=== PATIENT | female | born 1980 | race Caucasian/White ===

== ENCOUNTER 2024-04-11 21:16 | Emergency (ER) | payer SELFPAY ==
--- NOTE | 2024-04-11 21:19 | EKG_ITS ---
[facility] Test Date: 2024-04-11 Pat Name: ROBBY THORNE Department: Room: - Gender: Female Acute Coordinator: : 1980 Requested By: Jose Alberto Rae Order Number: [id number] Reading MD: Jose Alberto Rae Measurements Intervals [place] Rate: 90 P: 56 MA: 156 QRS: 30 QRSD: 89 T: 46 QT: 339 QTc: 415 Interpretive Statements SINUS RHYTHM No previous ECG available for comparison /store/S0/[id number]
[2024-04-11 21:40] VITALS: BP 149/84; PULSE 90; RESP 18; TEMP 37; O2SAT 96
[2024-04-11 21:41] VITALS: BMI 27.9
--- NOTE | 2024-04-11 21:51 | PD.EDRME ---
Rapid Medical Screening Exam E Arrival date/time: 04/11/24 21:16 44F with no significant PMH presents to ED with 1 week of cough and CP/SOB. Chief Complaint: Chest Pain Vital signs: Vital Signs Temperature 98.6 F 04/11/24 21:40 Pulse Rate 90 04/11/24 21:40 Respiratory Rate 18 04/11/24 21:40 Blood Pressure 149/84 H 04/11/24 21:40 Pulse Oximetry (%) 96 04/11/24 21:40 Oxygen Delivery Method Room Air 04/11/24 21:40
--- NOTE | 2024-04-11 22:15 | PC.NURSE ---
called for pt from lobby/outside, no answer @5022
--- NOTE | 2024-04-11 22:25 | PC.NURSE ---
PT ELOPED THER ER NAx1 2200, 2213, 2222
== END 2024-04-11 22:26 | disposition left against medical advice (07) ==
LOC: SERX 22:43
PROVIDERS: Emergency Provider Emergency Medicine
DX: R05.9 Cough, unspecified (principal); R07.9 Chest pain, unspecified; R06.02 Shortness of breath; Z53.29 Procedure and treatment not carried out because of patient's decision for other reasons
CPT/HCPCS: 80053; 84484; 85025; 93005; 99283

== ENCOUNTER 2024-08-06 13:16 | Emergency (ER) | payer SELFPAY ==
[2024-08-06 13:18] VITALS: BMI 27.3
[2024-08-06 14:03] VITALS: BP 129/82; PULSE 88; RESP 18; TEMP 36.9; O2SAT 99
--- NOTE | 2024-08-06 14:09 | XR_ITS ---
Examination: PA lateral chest 2 views TECHNIQUE: Upright PA lateral chest 2 views Exam date and time: August 06, 2024 1434 hours Comparison February 19, 2024 INDICATIONS: Coughing beginning 2 days ago. FINDINGS: Normal heart size. Lungs are clear. The osseous structures are intact IMPRESSION: No active disease
--- NOTE | 2024-08-06 15:17 | EDNOTE_ITS ---
Upper Respiratory Inf. RME/HPI General Chief Complaint: Flu Like Symptoms Stated Complaint: Chest pain, congestion, cough, fever Time Seen by Provider: 08/06/24 14:09 Arrival date/time: 08/06/24 13:16 44-year-old female with no significant medical problems presents to the emergency room today for complaints of cough, congestion, fever and bodyaches as well as sinus congestion and pain Limitations: no limitations Related Data Previous Rx's ?Medication ?Instructions ?Recorded amoxicillin 875 mg-potassium 1 tab PO BID 7 days #14 t abs 08/06/24 clavulanate 125 mg tablet ibuprofen 600 mg tablet 600 mg PO Q6H #30 tabs 08/06 Allergies Allergy/AdvReac Type Severity Reaction Status Date / Time walnut Allergy Severe Swelling Verified 02/23/24 12:07 of Lip/Tongue/Throat Review of Systems Review of Systems Systems Reviewed: All systems reviewed, normal except as documented Constitutional Constitutional: Reports system reviewed and no additional complaints, except as documented, Denies fever(s) and Denies headache(s) Eyes Eyes: Reports system reviewed and no additional complaints, except as documented and Denies blurry vision ENT Ears, Nose, Mouth, and Throat: Reports system reviewed and no additional complaints, except as documented, Denies headache(s), Reports nasal congestion and Reports nasal discharge Cardiovascular Cardiovascular: Reports system reviewed and no additional complaints, except as documented, Denies chest pain and Denies dyspnea Respiratory Respiratory: Reports system reviewed and no additional complaints, except as documented, Reports chest congestion, Reports cough and Denies dyspnea Gastrointestinal Gastrointestinal: Reports system reviewed and no additional complaints, except as documented and Denies abdominal pain Integumentary/Breasts Skin/Breast: Reports system reviewed and no additional complaints, except as documented and Denies rash Neurologic Neurologic: Reports system reviewed and no additional complaints, except as documented, Reports as per HPI and Denies headache(s) Past Medical History Social History SMOKING STATUS: Current some day smoker ED Exam General Limitations: Present no limitations General appearance: Present alert and in no apparent distress Head Head exam: Present atraumatic Eye Eye exam: Present normal appearance, PERRL and EOMI ENT ENT exam: Present normal exam, normal oropharynx and mucous membranes moist Neck Neck exam: Present normal inspection, full ROM and trachea midline Chest Chest inspection: Present normal inspection and symmetric chest wall rise Respiratory Respiratory exam: Present normal lung sounds bilaterally Cardiovascular Cardiovascular exam: Present regular rate, normal rhythm and normal heart sounds Abdominal Exam Abdominal exam: Present soft and normal bowel sounds Extremities Exam Extremities exam: Present normal inspection and full ROM Back Exam Back exam: Present normal inspection and full ROM Neurological Exam Neurological exam: Present alert, oriented X3 and CN II-XII intact Psychiatric Psychiatric exam: Present normal affect and normal mood Skin Skin exam: Present warm, dry, intact and normal color Course Quality Measures none Orders Category Date Time Status Bedside Influenza A&B Antigen Test NOW Care 08/06/24 14:09 Completed XR chest 2V Stat Exams 08/06/24 14:09 Completed Vital Signs Vital signs: Vital Signs Temperature 98.5 F 08/06/24 14:03 Pulse Rate 88 08/06/24 14:03 Respiratory Rate 18 08/06/24 14:03 Blood Pressure 129/82 08/06/24 14:03 Pulse Oximetry (%) 99 08/06/24 14:03 Oxygen Delivery Method Room Air 08/06/24 14:03 o2 sat 99% r/a wnl Upper Respiratory Infection MDM Narrative MDM Narrative:: 44-year-old female with no significant medical problems presents to the emergency room today for complaints of cough, congestion, fever and bodyaches as well as sinus congestion and pain On exam patient well-appearing patient does not appear ill or toxic and in no acute distress Chest x-ray obtained no acute remarkable tracer Patient active fluids get back negative Patient does have sinus pressure and tenderness patient be treated for sinusitis Patient given a prescription for Augmentin as well as ibuprofen Patient discharged home in no distress to follow-up with primary care doctor in the next 24 to 48 hours and for any worsening symptoms to return to the ER immediately Patient data External records reviewed:: [facility] previous records Clinical information provided by:: patient Social determinants that could affect healthcare access:: none Patient has the following chronic illnesses:: None How is presenting disease/condition affected by chronic disease/condition?: no chronic disease Evaluation data The following diagnostics were reviewed and interpreted by me:: lab results and radiology exam(s) Lab and/or radiology exams considered but not ordered:: Labs and radiology obtained Interpretation Summary: Reviewed by me Medications / Prescriptions Medications or Prescriptions considered but not ordered:: Given Medication administrations:: Given Consultations Consultation(s) initiated? (list below): No Diagnosis Upper Respiratory Differential Diagnosis: upper respiratory infection, viral infection, bronchitis, influenza and pharyngitis Most likely diagnosis given after review of the tests above:: Sinusitis Admission Indicated Admission indicated?: not indicated Admission Request Was there a request for admission?: No Disposition Plan Disposition Plan: Discharge Discharge Attestation Discharge Attestation: The patient and all family members were given an opportunity to ask questions and understood the discharge instructions. Discharge instructions specifically effects, indications for sooner follow up or return to the emergency department, and the expected course of current diagnosis. Patient condition: Stable Discharge Plan Plan Patient Disposition: HOME (Self Care) Disposition Comment: Stable Prescriptions/Referrals Prescriptions/Med Rec: New ibuprofen 600 mg tablet 600 mg PO Q6H Qty: 30 0RF amoxicillin-pot clavulanate 875-125 mg tablet 1 tab PO BID 7 Days Qty: 14 0RF Problem List Clinical Impression: Sinusitis Patient/Caregiver Discharge Instructions Education Materials: Causes of Sinusitis Additional Instructions: Please follow up with your primary care doctor in the next 24-48hrs for any worsening symptoms return here immediately Print Language: Faroese Stand Alone Forms: Ayesha Award Info., Work/School Release, Patient Portal Info Letter PA/IMPROVEMENT SPEC Supervising Physician PA/CARLY Supervising Physician: Dr Giles
== END 2024-08-06 15:45 | disposition home or self-care (01) ==
LOC: SERX 15:36
PROVIDERS: Emergency Provider Emergency Medicine
DX: J32.9 Chronic sinusitis, unspecified (principal); R05.9 Cough, unspecified
CPT/HCPCS: 71046; 87400; 99283

== ENCOUNTER 2024-09-03 15:21 | Emergency (ER) | payer SELFPAY ==
[2024-09-03 15:27] VITALS: BP 112/78; PULSE 96; RESP 18; TEMP 36.6; O2SAT 97
[2024-09-03 15:28] VITALS: BMI 27.3
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
== END 2024-09-03 16:42 ==
PROVIDERS: Emergency Provider Family Medicine
DX: Z02.89 Encounter for other administrative examinations (principal); Z04.1 Encounter for examination and observation following transport accident
CPT/HCPCS: 99281

== ENCOUNTER 2025-01-26 17:05 | Emergency (ER) | payer SELFPAY ==
[2025-01-26 18:39] VITALS: BP 118/70; PULSE 74; RESP 20; TEMP 36.9; O2SAT 95
--- NOTE | 2025-01-26 18:42 | EKG_ITS ---
[facility] Test Date: 2025-01-26 Pat Name: ROBBY THORNE Department: Room: - Gender: Female Legal Analyst: : 1980 Requested By: Maame Gonzalez Order Number: [id number] Reading MD: Maame Gonzalez Measurements Intervals [place] Rate: 75 P: 62 [place]: 148 QRS: 49 QRSD: 80 T: 67 QT: 354 QTc: 397 Interpretive Statements SINUS RHYTHM POSSIBLE LEFT ATRIAL ENLARGEMENT [-0.1mV P-WAVE IN V1/V2] SEPTAL MYOCARDIAL INFARCTION , OF INDETERMINATE AGE [40+ ms Q WAVE IN V1/V2] Compared to ECG 04/11/2024 21:39:11 Myocardial infarct finding now present /store/S0/[id number]/[id number]
--- NOTE | 2025-01-26 18:42 | XR_ITS ---
Examination: PA chest single view Technique: Upright PA chest single view Date and time: January 26, 2025 1920 hrs. Indications: Short of breath coughing today. Findings: Mild accentuation basilar bronchovascular markings. Normal heart size. No pneumonia or pulmonary edema. Impression: Basilar bronchitis pattern
[2025-01-26 19:33] LABS: Basophils # (Auto) 0.1 Thou/mm3 (0.0-0.2); Basophils % (Auto) 1 % (0-2.5); Eosinophils # (Auto) 0.4 Thou/mm3 (0.0-0.5); Eosinophils % (Auto) 5 % (0-10); Hematocrit 38.7 % (36.0-46.0); Hemoglobin 13.4 g/dL (12.0-16.0); Immature Granulocytes Auto 0.02 Thou/mm3 (0.00-0.00); Lymphocytes # (Auto) 2.0 Thou/mm3 (1.0-4.8); Lymphocytes % (Auto) 25 % (10-50); Mean Corpuscular HGB Conc 34.6 g/dl (31.0-37.0); Mean Corpuscular Hemoglobin 32.3 pg (25.0-35.0); Mean Corpuscular Volume 93 fL (80-100); Monocytes # (Auto) 0.6 Thou/mm3 (0.0-0.8); Monocytes % (Auto) 8 % (0-12); Neutrophils # (Auto) 4.8 Thou/mm3 (1.8-7.7); Neutrophils % (Auto) 61 % (37-80); Nucleated Red Blood Cell # 0.00 Thou/mm3 (0.00-0.00); Nucleated Red Blood Cell % 0 /100 WBC (0); Platelet Count 314 Thou/mm3 (140-440); RDW Standard Deviation 46.0 fL (36.4-46.3); Red Blood Count 4.15 Miln/mm3 (4.00-5.20); White Blood Count 7.9 Thou/mm3 (3.6-11.0)
[2025-01-26 19:52] LABS: B-Type Natriuretic Peptide < 20 pg/mL (0-100)
[2025-01-26 19:53] LABS: Alanine Aminotransferase 19 U/L (10-49); Albumin, Serum 4.8 gm/dL (3.5-5.0); Albumin/Globulin Ratio 2.0 (1.2-2.2); Alkaline Phosphatase 119 U/L (46-116); Anion Gap 8 (7-16); Aspartate Amino Transferase 21 U/L (0-34); BUN/Creatinine Ratio 16 Ratio (12-20); Bilirubin,Total 0.4 mg/dL (0.3-1.2); Blood Urea Nitrogen 16 mg/dL (9-23); Calcium 10.8 mg/dL (8.3-10.6); Calcium (Corrected) 10.8 mg/dL (8.5-10.1); Carbon Dioxide 28.1 mMol/L (20.0-31.0); Chloride 105 mMol/L (98-107); Creatinine (Component) 1.0 mg/dL (0.6-1.3); Estimated Creatinine Clearance 70.9 mL/min (>60); Globulin 2.4 gm/dL (2.3-3.5); Glucose 95 mg/dL (74-106); Osmolality,Calculated 282 (275-295); Potassium 3.7 mMol/L (3.4-5.1); Sodium 141 mMol/L (136-145); Total Protein 7.2 gm/dL (5.7-8.2); Troponin I < 0.002 ng/mL (0.0-0.045); eGFR > 60 See Note
[2025-01-26] MEDS: MethylPREDNISolone SOD SUCC 62.5 MG/ML 2ML VIAL 125 MG IM (20:15)
[2025-01-26] MEDS: ALBUTEROL/IPRATROPIUM (Duoneb) RT SOL 3 ML NEBU INH (20:23)
[2025-01-26 20:29] VITALS: PULSE 86; RESP 18; O2SAT 100
--- NOTE | 2025-01-26 20:46 | PD.EDSOB ---
ED SOB =RME/HPI General Chief Complaint: Shortness of Breath/Dyspnea Stated Complaint: DIFF BREATHING, COUGH, CONGESTION, TOLENTINO X 3 WKS Time Seen by Provider: 01/26/25 18:33 Arrival date/time: 01/26/25 17:05 This is a case of 44-year-old female with history of asthma came in in the emergency room due to cough nasal congestion and frontal headache for 3 weeks worsening of the symptoms now with shortness of breath wheezing and pleuritic chest pain thus patient decided to sought consult here in the emergency room no palpitation no fever no chills Limitations: no limitations Related Data Previous Rx's ?Medication ?Instructions ?Recorded ibuprofen 600 mg tablet 600 mg PO Q6H #30 tabs 08/06/24 albuterol sulfate 90 mcg/actuation 2 puff inhalation Q6H PRN 01/26/25 aerosol inhaler (Ventolin HFA) shortness of breath or wheezing #8.5 grams azithromycin 250 mg tablet See Rx Instructions PO .COMPLEX #6 01/26/25 tabs prednisone 20 mg tablet See Taper PO QDAY 5 days #5 tabs 01/26/25 promethazine-DM 6.25 mg-15 mg/5 mL 5 ml PO Q6H PRN cough #118 mL 01/26/25 oral syrup Allergies Allergy/AdvReac Type Severity Reaction Status Date / Time walnut Allergy Severe Swelling Verified 01/26/25 17:09 of Lip/Tongue/Throat Review of Systems Review of Systems Systems Reviewed: All systems reviewed, normal except as documented Constitutional Constitutional: Reports system reviewed and no additional complaints, except as documented and Reports as per HPI ENT Ears, Nose, Mouth, and Throat: Reports system reviewed and no additional complaints, except as documented and Reports as per HPI Cardiovascular Cardiovascular: Reports system reviewed and no additional complaints, except as documented Respiratory Respiratory: Reports system reviewed and no additional complaints, except as documented and Reports as per HPI Gastrointestinal Gastrointestinal: Reports system reviewed and no additional complaints, except as documented and Reports as per HPI Musculoskeletal Musculoskeletal: Reports system reviewed and no additional complaints, except as documented and Reports as per HPI Neurologic Neurologic: Reports system reviewed and no additional complaints, except as documented and Reports as per HPI Past Medical History Social History SMOKING STATUS: Current every day smoker ED Exam General Limitations: Present no limitations General appearance: Present alert, in no apparent distress and other (Is awake alert oriented not in distress nontoxic looking well-hydrated well-nourished) Head Head exam: Present atraumatic, normocephalic and normal inspection Eye Eye exam: Present normal appearance, PERRL and EOMI ENT ENT exam: Present normal exam, normal oropharynx, mucous membranes moist and other (HEENT exam is normal and unremarkable) Neck Neck exam: Present normal inspection, full ROM and trachea midline; Absent tenderness, meningismus, lymphadenopathy or thyromegaly Chest Chest inspection: Present normal inspection and symmetric chest wall rise; Absent tenderness Respiratory Respiratory exam: Present normal lung sounds bilaterally and wheezes (Wheezing both lower lung field no crackles no rales no retraction no stridor); Absent respiratory distress, stridor, accessory muscle use or prolonged expiratory phase Cardiovascular Cardiovascular exam: Present regular rate, normal rhythm and normal heart sounds; Absent bradycardia, tachycardia, irregular rhythm, systolic murmur or diastolic murmur Abdominal Exam Abdominal exam: Present soft and normal bowel sounds Extremities Exam Extremities exam: Present normal inspection and full ROM Back Exam Back exam: Present normal inspection and full ROM Neurological Exam Neurological exam: Present alert, oriented X3, CN II-XII intact, normal gait and reflexes normal; Absent motor sensory deficit Psychiatric Psychiatric exam: Present normal affect and normal mood Skin Skin exam: Present warm, dry, intact and normal color Course Quality Measures none Orders Category Date Time Status EKG (ED ONLY) *Do not use* NOW Care 01/26/25 18:42 Completed EKG (ED Only) Stat Exams 01/26/25 18:42 Draft XR chest 1V portable Stat Exams 01/26/25 18:42 Taken BNP [B-Type Natriuretic Peptide] Stat Lab 01/26/25 18:51 Completed CBC Stat Lab 01/26/25 18:51 Completed CMP [Comprehensive Metabolic Panel] Stat Lab 01/26/25 18:51 Completed Troponin I Stat Lab 01/26/25 18:51 Completed Albuterol/Ipratr Rt Jolanta [Duoneb Rt Jolanta] Med 01/26/25 18:42 Discontinued 3 ml INH X1 ONE MethylPREDNISolone.* [SoluMEDROL Inj] Med 01/26/25 18:42 Discontinued 125 mg IM X1 ONE Vital Signs Vital signs: Vital Signs Temperature 98.4 F 01/26/25 18:39 Pulse Rate 74 01/26/25 18:39 Respiratory Rate 20 01/26/25 18:39 Blood Pressure 118/70 01/26/25 18:39 Pulse Oximetry (%) 95 01/26/25 18:39 Oxygen Delivery Method Room Air 01/26/25 18:39 Oxygen saturation is 95% in room air after breathing treatment and steroid patient oxygen saturation is 99 to 100% no signs and symptoms of hypoxia Shortness of Breath / Dyspnea MDM Narrative MDM Narrative:: This is a case of 44-year-old female with history of asthma came in in the emergency room due to cough nasal congestion and frontal headache for 3 weeks worsening of the symptoms now with shortness of breath wheezing and pleuritic chest pain thus patient decided to sought consult here in the emergency room no palpitation no fever no chills physical examination patient is awake alert oriented not in distress nontoxic looking well-hydrated well-nourished noted wheezing both lower lung field no crackles no rales no retraction no stridor HEENT exam is normal heart normal rate regular rhythm no murmur the rest of the physical examination and neurological exam were normal and unremarkable blood test showed no leukocytosis no anemia kidney and liver function is normal no electrolyte imbalance troponin is negative BNP is negative EKG showed sinus rhythm I discussed the result to Dr. Pradeep Wells the result of the EKG and he agreed that the EKG is normal and patient will follow-up with a astrophysics professor for her chest pain for possible echocardiogram stress test and Holter monitor patient x-ray showed normal no pneumonia after giving a breathing treatment steroid patient condition markedly improved patient was reassessed after 1 hour no shortness of breath no wheezing noted at this point no signs and symptoms of sepsis dehydration or hypoxia patient will follow-up with PCP in 2 days for reevaluation and to be referred to car ferry master for asthma and for any recurrence persistent or worsening symptoms return precaution in the ER is advised Patient was discharged with comfortable condition walking with stable gait. Patient verbalized no further complains explained diagnosis and answered patient question. Patient is comfortable with the proposed management plan including the need to follow up with his/her primary care physician and any specialist if applicable Discussed patient for any urgent condition or worsening sx, He/She needed to go to emergency room immediately or call 911. Patient acknowledge the responsibility to follow up as instructed and to monitor her/his symptoms. For any persistence of the symptoms for more than 3-5 days return precaution advised. Discussed the result of the test and was given printed discharge instruction Patient data External records reviewed:: [facility] previous records Clinical information provided by:: patient Social determinants that could affect healthcare access:: none Patient has the following chronic illnesses:: None How is presenting disease/condition affected by chronic disease/condition?: no chronic disease Evaluation data The following diagnostics were reviewed and interpreted by me:: lab results, radiology exam(s) and EKG tracing(s) Lab and/or radiology exams considered but not ordered:: Reviewed Interpretation Summary: Reviewed Medications / Prescriptions Medications or Prescriptions considered but not ordered:: Given Medication administrations:: Medication Administration History Discontinued Medications Albuterol/Ipratropium (Albuterol/Ipratropium (Duoneb) Rt Jolanta 3 Ml Nebu) 3 ml INH X1 ONE Stop: 01/26/25 18:43 Last Admin: 01/26/25 20:23 Dose: 3 ml Documented By: DM Methylprednisolone Sodium Succinate (Methylprednisolone Sod Succ 62.5 Mg/Ml 2ml Vial) 125 mg IM X1 ONE Stop: 01/26/25 18:43 Last Admin: 01/26/25 20:15 Dose: 125 mg Documented By: OA Given Consultations Consultation(s) initiated? (list below): Yes Consultation #1 (Physician, Specialty, Details): Dr. Tatum discussed the result of the EKG and agreed at this time patient is not having myocardial infarction patient EKG is still normal sinus rhythm no ST T wave or Q wave abnormality Diagnosis Shortness of Breath Differential Diagnosis: acute exacerbation of chronic obstructive airways disease, congestive heart failure, community acquired pneumonia and asthma with exacerbation Most likely diagnosis given after review of the tests above:: Chest pain of unknown etiology asthma bronchitis Admission Indicated Admission indicated?: not indicated Explain why admission is indicated or not indicated:: Not indicated Admission Request Was there a request for admission?: No Admission Attestation Admission request attestation: Not indicated Disposition Plan Disposition Plan: Discharge Discharge Attestation Discharge Attestation: The patient and all family members were given an opportunity to ask questions and understood the discharge instructions. Discharge instructions specifically effects, indications for sooner follow up or return to the emergency department, and the expected course of current diagnosis. Patient condition: Stable Discharge Plan Plan Patient Disposition: HOME (Self Care) Patient condition on transfer: Stable Prescriptions/Referrals Prescriptions/Med Rec: New azithromycin 250 mg tablet See Rx Instructions .ROUTE .COMPLEX Qty: 6 0RF Rx Instructions: For 250 mg dose pack: take 500 mg today (day 1), then 250 mg for 4 days (days 2-5) promethazine-DM 6.25-15 mg/5 mL syrup 5 ml PO Q6H PRN (Reason: cough) Qty: 118 0RF prednisone 20 mg tablet See Taper PO QDAY 5 Days Qty: 5 0RF Taper: Prednisone Taper 20 mg DAILY for 2 Days and 0 Hour 10 mg DAILY for 2 Days and 0 Hour 5 mg DAILY for 7 Days and 0 Hour albuterol sulfate [Ventolin HFA] 90 mcg/actuation HFA aerosol inhaler 2 puff inhalation Q6H PRN (Reason: shortness of breath or wheezing) Qty: 8.5 0RF No Action ibuprofen 600 mg tablet 600 mg PO Q6H Qty: 30 0RF Referrals: No Primary/Family,Physician [Primary Care Provider] - In 1 week Problem List Clinical Impression: AB (asthmatic bronchitis), Chest pain of unknown etiology Patient/Caregiver Discharge Instructions Education Materials: Acute Bronchitis, ED Chest Pain, Uncertain Cause, Asthma Additional Instructions: Follow-up with your primary care physician in 2 days for reevaluation and to be referred to astrophysics professor for further evaluation and treatment of chest pain echocardiogram and stress test and need to be seen car ferry master for your asthma recurrence persistent worsening symptoms or any emergent concern call 911 or go to the nearest emergency room take your medication as directed finish the course of antibiotic keep hydrated Print Language: Armenian Stand Alone Forms: Ayesha Award Info., Work/School Release, Patient Portal Info Letter PA/CARLY Supervising Physician PA/CARLY Supervising Physician: Dr. Pradeep Williamson
== END 2025-01-26 20:57 | disposition home or self-care (01) ==
PROVIDERS: Nurse Practitioner Family; Emergency Provider Emergency Medicine
DX: J45.909 Unspecified asthma, uncomplicated (principal); R07.9 Chest pain, unspecified
CPT/HCPCS: 36415; 71045; 80053; 83880; 84484; 85025; 93005; 94640; 96372; 99283; A9270; J2919